=== PATIENT | female | born 1965 ===

== ENCOUNTER 2023-05-20 13:15 | Outpatient (CLI) | payer OTHER, SELFPAY | END 2023-05-20 13:16 | disposition home or self-care (01) | PROVIDERS: PCP Family Medicine; Visit Provider Family Medicine | DX: Z00.00 Encounter for general adult medical examination without abnormal findings (principal); Z13.6 Encounter for screening for cardiovascular disorders; Z11.59 Encounter for screening for other viral diseases | CPT/HCPCS: 80053; 80061; 86803 ==

== ENCOUNTER 2023-08-12 14:27 | Outpatient (CLI) | payer OTHER, SELFPAY ==
--- NOTE | 2023-08-12 14:40 | MM_ITS ---
Patient: JADA MO Facility:?[facility] Patient ID:?[id number] Site Patient ID:?[id number] Site :?[id number] Study:?XRay-Breast Bilateral 3D W/CAD-08/12/2023 11:05:05 AM Ordering Physician:Varun Rodgers Final Report: BILATERAL SCREENING MAMMOGRAM WITH COMPUTER-AIDED DETECTION AND TOMOSYNTHESIS TECHNIQUE: CC and MLO views were obtained. These mammographic images have been obtained using full-field digital technique. These mammographic images were interpreted with the benefit of computer-aided detection. Breast Tomosynthesis was used in this interpretation. COMPARISON FILM: 03/10/22. FINDINGS: There are scattered areas of fibroglandular density. IMPRESSION: There is no radiographic evidence for malignancy. ASSESSMENT: BI-RADS Category 1: Negative RECOMMENDATION: Routine screening mammogram in 1 year. A lay language report of this examination will be provided to the patient. Jey Strong M.D. Diagnostic Radiologist [email or web address] DSM/sp R& Transcribed: 1:55 p.m. SP/Dictated by: Jey Strong MD @ 08/17/2023 11:45:00 AM Signed by:?Jey Strong MD @08/17/2023 2:34:46 PM (Electronic Signature)
== END 2023-08-12 14:28 | disposition home or self-care (01) ==
LOC: MAMMO 14:30
PROVIDERS: PCP Family Medicine; Visit Provider Nurse Practitioner
DX: Z12.31 Encounter for screening mammogram for malignant neoplasm of breast (principal)
CPT/HCPCS: 77063; 77067